=== PATIENT | female | born 1985 | race Caucasian/White ===

== ENCOUNTER 2017-02-07 17:36 | Emergency (ER) | payer MEDICAID ==
[~2017-02-07] VITALS: Ht 167.6 cm; Wt 102.4 kg
[2017-02-07 17:37] VITALS: BP 127/84
== END 2017-02-07 18:47 | disposition home or self-care (01) ==
LOC: ED 18:41
DX: S80.01XA Contusion of right knee, initial encounter (principal); G89.11 Acute pain due to trauma; M25.511 Pain in right shoulder; V87.8XXA Person injured in other specified noncollision transport accidents involving motor vehicle (traffic), initial encounter; Y93.73 Activity, racquet and hand sports; Y92.39 Other specified sports and athletic area as the place of occurrence of the external cause; Y99.8 Other external cause status
CPT/HCPCS: 99284

== ENCOUNTER 2017-06-20 12:43 | Emergency (ER) | payer MEDICAID ==
[~2017-06-20] VITALS: Ht 167.6 cm; Wt 103.0 kg
[2017-06-20 12:54] VITALS: BP 137/86
== END 2017-06-20 13:36 | disposition home or self-care (01) ==
LOC: ED 13:30
DX: K02.9 Dental caries, unspecified (principal)
CPT/HCPCS: 99283

== ENCOUNTER 2019-10-26 04:40 | Emergency (ER) | payer MEDICAID ==
[~2019-10-26] VITALS: Ht 167.6 cm; Wt 112.1 kg
--- NOTE | 2019-10-26 05:15 | NUR ---
PT TO ED WITH C/O OF DYSURIA AND PAINFUL URINATION. PT DENIES N/V, AB OR FLANK PAIN. PT DENIES AN OTHER C/O AT THIS TIME. UA SENT. ERP IN ROOM TO [facility] PT. PT PLACED ON MONITORING, CALL LIGHT WITHIN REACH, FAMILY AT BS FOR SUPPORT.
[2019-10-26 05:39] LABS: MICROSCOPIC INDICATED
[2019-10-26 06:40] VITALS: BP 117/61
== END 2019-10-26 06:43 | disposition home or self-care (01) ==
LOC: ED 05:29
DX: N30.01 Acute cystitis with hematuria (principal); R30.0 Dysuria; M54.5 Low back pain; R39.15 Urgency of urination; R11.0 Nausea; F17.200 Nicotine dependence, unspecified, uncomplicated
CPT/HCPCS: 81001; 87077; 87086; 99283

== ENCOUNTER 2020-02-20 17:38 | Emergency (ER) | payer MEDICAID ==
[~2020-02-20] VITALS: Ht 167.6 cm; Wt 117.8 kg
== END 2020-02-20 18:17 | disposition home or self-care (01) ==
LOC: ED 17:50
DX: L03.115 Cellulitis of right lower limb (principal)
CPT/HCPCS: 99283

== ENCOUNTER 2020-06-24 13:19 | Emergency (ER) | payer MEDICAID ==
[~2020-06-24] VITALS: Ht 167.6 cm; Wt 120.0 kg
[2020-06-24 13:28] VITALS: BP 134/85
--- NOTE | 2020-06-24 14:29 | NUR ---
PT D/C WITH D/C SUMMARY AND SCRIPTS. ALL QUESTIONS ANSWERED. PT DENIES ANY OTHER NEEDS PERTAINING TO THIS VISIT AND AMBULATES TO REGISTRATION DESK WITH STEADY GAIT FOR D/C HOME.
== END 2020-06-24 14:33 | disposition home or self-care (01) ==
LOC: ED 14:20
DX: K02.9 Dental caries, unspecified (principal); R09.89 Other specified symptoms and signs involving the circulatory and respiratory systems; F17.210 Nicotine dependence, cigarettes, uncomplicated
CPT/HCPCS: 99283; 99406

== ENCOUNTER 2020-07-09 20:36 | Inpatient (IN) | payer MEDICAID ==
[~2020-07-09] VITALS: Ht 157.5 cm; Wt 119.7 kg
--- NOTE | 2020-07-09 21:51 | NUR ---
PT HAVING BILATER LOWER EX PAIN AND SWELLING X 2 WEEKS. WENT TO [facility] ABOUT 10 DAYS AGO AND RECIEVED SOME ABX. PT FEELS SWELLING AND PAIN IS WORSE. AWAITING ERP EVAL. LEGS REG SWOLLEN AND MULTIBLE SCABS ON THEM. PT BREATHING HEAVY AND IN 10/10 PAIN.
[2020-07-09] MEDS ORDERED: MORPHINE SULFATE 4 MG/ML, 1ML ONE (22:15)
--- NOTE | 2020-07-09 22:28 | NUR ---
PIV PLACED, BLOOD CULTURES DRAWN AND LABS DRAWN. MEDICATED PER EMAR
[2020-07-09] MEDS ORDERED: MORPHINE SULFATE 4 MG/ML, 1ML IVPush PRN (22:30)
[2020-07-09] MEDS ORDERED: SODIUM CHLORIDE 0.9% 1,000ML IVBOLUS ONE (22:30)
[2020-07-09 22:32] LABS: BASOPHILS % (AUTO) 1 % (0-1); EOSINOPHILS % (AUTO) 1 % (1-7); LYMPHOCYTES % (AUTO) 22 % (22-44); MEAN CORPUSCULAR HEMOGLOBIN 30.7 pg (27.0-34.8); MEAN CORPUSCULAR HGB CONC 33.8 g/dL (32.4-35.8); MEAN PLATELET VOLUME 7.6 fL (7.4-10.4); MONOCYTES % (AUTO) 5 % (2-9); NEUTROPHILS % (AUTO) 71 % (42-75); PLATELET COUNT 322 x10^3/uL (130-400); RED BLOOD COUNT 4.75 x10^6/uL (3.82-5.3); RED CELL DISTRIBUTION WIDTH 13.6 % (9.6-15.2)
[2020-07-09 22:33] LABS: MD NO
[2020-07-09 22:44] LABS: ALANINE AMINOTRANSFERASE 24 U/L (12-78); ALBUMIN 3.3 g/dL (3.4-5.0); ANION GAP 2 mmol/L (5-15); CALCIUM 8.5 mg/dL (8.5-10.1); CHLORIDE 106 mmol/L (98-107)
[2020-07-09 22:45] LABS: ALKALINE PHOSPHATASE 95 U/L (45-117); BILIRUBIN,TOTAL 0.1 mg/dL (0.2-1.0); TOTAL PROTEIN 7.7 g/dL (6.4-8.2)
--- NOTE | 2020-07-09 22:54 | NUR ---
ABX AFTER BLOOD CULTURES
[2020-07-09] MEDS ORDERED: VANCOMYCIN PER PHARMACY MC PRN (23:00)
[2020-07-09] MEDS ORDERED: AMPICILLIN/SULBACTAM 3 GM in SODIUM CHLORIDE 0.9% 100 ML IV ONE (23:00)
--- NOTE | 2020-07-09 23:27 | NUR ---
ultrasound at bedside
[2020-07-09] MEDS ORDERED: VANCOMYCIN 2,500 MG in SODIUM CHLORIDE 0.9% 500 ML IV ONE (23:45)
--- NOTE | 2020-07-10 00:27 | NUR ---
REPORT TO CHIQUITA [facility]
[2020-07-10 01:15] VITALS: BP 129/82
[2020-07-10 01:26] VITALS: BP 129/82
[2020-07-10] MEDS ORDERED: PROMETHAZINE 25 MG/ML, 1ML IM PRN (02:30)
[2020-07-10] MEDS ORDERED: hydrALAzine 20 MG/ML, 1ML IVPush PRN (02:30)
[2020-07-10] MEDS ORDERED: OXYcodone IR 5MG TABLET PO PRN (02:30)
[2020-07-10] MEDS: ENOXAPARIN 40 MG/0.4 ML SQ SCH (02:30)
[2020-07-10] MEDS ORDERED: POLYETHYLENE GLYCOL 17 GM PACKET PO PRN (02:30)
[2020-07-10] MEDS ORDERED: ONDANSETRON ODT 4 MG PO PRN (02:30)
[2020-07-10] MEDS ORDERED: ONDANSETRON 2MG/ML, 2ML IVPush PRN (02:30)
[2020-07-10] MEDS ORDERED: ACETAMINOPHEN 325 MG TABLET PO PRN (02:30)
[2020-07-10] MEDS ORDERED: BISACODYL 10 MG SUPP PR PRN (02:30)
[2020-07-10] MEDS ORDERED: DOCUSATE 100 MG CAPSULE PO PRN (02:30)
[2020-07-10] MEDS ORDERED: VANCOMYCIN PER PHARMACY MC PRN (02:30)
[2020-07-10] MEDS ORDERED: PHARMACOKINETIC MONITORING MC PRN (03:00)
[2020-07-10 05:32] LABS: BASOPHILS % (AUTO) 1 % (0-1); EOSINOPHILS % (AUTO) 2 % (1-7); LYMPHOCYTES % (AUTO) 35 % (22-44); MEAN CORPUSCULAR HEMOGLOBIN 30.6 pg (27.0-34.8); MEAN CORPUSCULAR HGB CONC 33.6 g/dL (32.4-35.8); MEAN PLATELET VOLUME 7.7 fL (7.4-10.4); MONOCYTES % (AUTO) 7 % (2-9); NEUTROPHILS % (AUTO) 56 % (42-75); PLATELET COUNT 266 x10^3/uL (130-400); RED BLOOD COUNT 4.12 x10^6/uL (3.82-5.3); RED CELL DISTRIBUTION WIDTH 13.8 % (9.6-15.2)
[2020-07-10 05:40] LABS: ANION GAP 4 mmol/L (5-15); CHLORIDE 109 mmol/L (98-107)
[2020-07-10 05:45] LABS: MD NO
[2020-07-10 05:53] LABS: ALANINE AMINOTRANSFERASE 19 U/L (12-78); ALBUMIN 2.7 g/dL (3.4-5.0); ALKALINE PHOSPHATASE 80 U/L (45-117); BILIRUBIN,TOTAL 0.1 mg/dL (0.2-1.0); CALCIUM 7.7 mg/dL (8.5-10.1); CHOL/HDL RATIO 2.7; CHOLESTEROL, TOTAL 115 mg/dL (140-239); CREATININE 0.81 mg/dL (0.55-1.02); HDL CHOL % 37 % (28-40); HDL CHOLESTEROL (DIRECT) 43 mg/dL (40-60); LDL CHOLESTEROL,CALCULATED 60 mg/dL (54-169); LDL/HDL RATIO 1.4 (0.5-3.0); TOTAL PROTEIN 6.1 g/dL (6.4-8.2); TRIGLYCERIDES 59 mg/dL (50-200); VLDL CHOLESTEROL 12 mg/dL (0-25)
[2020-07-10 06:06] LABS: HCT (SEDRATE) 37.6 % (34.6-47.8)
[2020-07-10] MEDS: AMPICILLIN/SULBACTAM 3 GM in SODIUM CHLORIDE 0.9% 100 ML IV SCH ×3 (06:27→18:21)
[2020-07-10 06:52] VITALS: BP 101/62
[2020-07-10 12:20] VITALS: BP 105/69
[2020-07-10] MEDS: VANCOMYCIN 2,000 MG in SODIUM CHLORIDE 0.9% 500 ML IV SCH (13:11)
[2020-07-10 14:46] LABS: ANA SCREEN NEGATIVE (Negative)
[2020-07-10 18:19] LABS: AMPHETAMINE SCREEN, URINE Positive (Negative); BARBITURATE SCREEN, URINE Negative (Negative); BENZODIAZEPINE SCREEN, URINE Negative (Negative); CANNABINOID SCREEN, URINE Negative (Negative); COCAINE SCREEN, URINE Negative (Negative); METHADONE SCREEN, URINE Negative (Negative); OPIATE SCREEN, URINE Positive (Negative)
[2020-07-10 20:45] VITALS: BP 114/73
[2020-07-11] MEDS: AMPICILLIN/SULBACTAM 3 GM in SODIUM CHLORIDE 0.9% 100 ML IV SCH ×4 (00:02→19:20)
[2020-07-11 01:44] VITALS: BP 114/74
[2020-07-11] MEDS: VANCOMYCIN 2,000 MG in SODIUM CHLORIDE 0.9% 500 ML IV SCH ×2 (01:53→13:10)
[2020-07-11] MEDS: ENOXAPARIN 40 MG/0.4 ML SQ SCH (02:15)
[2020-07-11 06:09] LABS: BASOPHILS % (AUTO) 1 % (0-1); EOSINOPHILS % (AUTO) 3 % (1-7); LYMPHOCYTES % (AUTO) 35 % (22-44); MEAN CORPUSCULAR HEMOGLOBIN 30.6 pg (27.0-34.8); MEAN PLATELET VOLUME 7.1 fL (7.4-10.4); MONOCYTES % (AUTO) 7 % (2-9); NEUTROPHILS % (AUTO) 55 % (42-75); PLATELET COUNT 284 x10^3/uL (130-400); RED BLOOD COUNT 4.32 x10^6/uL (3.82-5.3); RED CELL DISTRIBUTION WIDTH 13.3 % (9.6-15.2)
[2020-07-11 06:14] LABS: ALANINE AMINOTRANSFERASE 19 U/L (12-78); ALBUMIN 2.7 g/dL (3.4-5.0); ANION GAP 4 mmol/L (5-15); CALCIUM 7.9 mg/dL (8.5-10.1); CHLORIDE 108 mmol/L (98-107); CREATININE 0.56 mg/dL (0.55-1.02)
[2020-07-11 06:16] LABS: ALKALINE PHOSPHATASE 77 U/L (45-117); BILIRUBIN,TOTAL 0.3 mg/dL (0.2-1.0); TOTAL PROTEIN 6.3 g/dL (6.4-8.2)
[2020-07-11 06:21] LABS: MD NO
[2020-07-11 06:54] VITALS: BP 110/72
[2020-07-11 13:15] VITALS: BP 130/83
[2020-07-11] MEDS ORDERED: LIDOCAINE 1%, 10ML ONE (13:44)
[2020-07-11 20:07] VITALS: BP 132/81
[2020-07-12] MEDS: AMPICILLIN/SULBACTAM 3 GM in SODIUM CHLORIDE 0.9% 100 ML IV SCH ×3 (01:18→13:43)
[2020-07-12 01:31] VITALS: BP 119/78
[2020-07-12] MEDS: VANCOMYCIN 2,000 MG in SODIUM CHLORIDE 0.9% 500 ML IV SCH (05:22)
[2020-07-12 05:43] LABS: BASOPHILS % (AUTO) 1 % (0-1); EOSINOPHILS % (AUTO) 2 % (1-7); LYMPHOCYTES % (AUTO) 31 % (22-44); MEAN CORPUSCULAR HEMOGLOBIN 30.8 pg (27.0-34.8); MEAN CORPUSCULAR HGB CONC 33.8 g/dL (32.4-35.8); MEAN PLATELET VOLUME 7.2 fL (7.4-10.4); MONOCYTES % (AUTO) 6 % (2-9); NEUTROPHILS % (AUTO) 60 % (42-75); PLATELET COUNT 300 x10^3/uL (130-400); RED BLOOD COUNT 4.42 x10^6/uL (3.82-5.3); RED CELL DISTRIBUTION WIDTH 13.2 % (9.6-15.2)
[2020-07-12 05:44] LABS: MD NO
[2020-07-12 05:53] LABS: ALBUMIN 2.8 g/dL (3.4-5.0); ANION GAP 3 mmol/L (5-15); CALCIUM 8.8 mg/dL (8.5-10.1); CHLORIDE 108 mmol/L (98-107)
[2020-07-12 05:57] LABS: ALANINE AMINOTRANSFERASE 20 U/L (12-78); ALKALINE PHOSPHATASE 79 U/L (45-117); BILIRUBIN,TOTAL 0.3 mg/dL (0.2-1.0); CREATININE 0.75 mg/dL (0.55-1.02); TOTAL PROTEIN 6.9 g/dL (6.4-8.2)
[2020-07-12 07:45] VITALS: BP 122/81
[2020-07-12 12:54] VITALS: BP 127/83
[2020-07-12] MEDS ORDERED: HYDR-3248 PO (15:30)
== END 2020-07-12 15:56 | disposition home or self-care (01) | DRG 593 ==
LOC: ED 22:35 → EDIP 07-10 00:10 → 3N 07-10 00:56 → DCLOUNGE 07-12 15:50
PROVIDERS: ADMIT Internal Medicine; ATTEND Hospitalist
PROC: 0HBLXZX Excision of Left Lower Leg Skin, External Approach, Diagnostic (ICD-10-PCS; principal; 2020-07-11)
DX: L97.929 Non-pressure chronic ulcer of unspecified part of left lower leg with unspecified severity (principal); L03.116 Cellulitis of left lower limb; L03.115 Cellulitis of right lower limb; L97.919 Non-pressure chronic ulcer of unspecified part of right lower leg with unspecified severity; E66.9 Obesity, unspecified; D72.829 Elevated white blood cell count, unspecified; F17.210 Nicotine dependence, cigarettes, uncomplicated; Z87.440 Personal history of urinary (tract) infections; Z82.61 Family history of arthritis
CPT/HCPCS: 36415; 84145; 87806; 96361; 96365; 96375; 99285; J3490; 80053; 80061; 80202; 80307; 83036; 83520; 83605; 83735; 84100; 84443; 84702; 85025; 85651; 86038; 86140; 86200; 86256; 86704; 86706; 86708; 86803; 87040; 87340; 88305; 93922; 93970; G0378; J0295; J1650; J3370; G0475; J2270; J7030; J7040

== ENCOUNTER 2021-01-04 12:05 | Emergency (ER) | payer MEDICAID ==
[~2021-01-04] VITALS: Ht 165.1 cm; Wt 117.7 kg
[~2021-01-04 12:05] MED LIST: HYDR-3248 PO; PRED20TA PO
[2021-01-04 12:08] VITALS: BP 121/70
[2021-01-04] MEDS ORDERED: SODIUM CHLORIDE FLUSH 10ML SYR IVF ONE (12:30)
--- NOTE | 2021-01-04 16:37 | NUR ---
NOT IN LOBBY X1
--- NOTE | 2021-01-04 17:18 | NUR ---
NOT IN LOBBY
--- NOTE | 2021-01-04 17:26 | NUR ---
NA from [facility] at this time. D/C without AMA after being seen by PA in triage.
== END 2021-01-04 17:41 | disposition left against medical advice (07) ==
LOC: ED 12:15
DX: M25.572 Pain in left ankle and joints of left foot (principal); M79.672 Pain in left foot; R10.9 Unspecified abdominal pain
CPT/HCPCS: 99284